=== PATIENT | male | born 1975 | race Caucasian/White ===

== ENCOUNTER 2023-03-29 15:55 | Emergency (ER) | payer SELFPAY ==
[~2023-03-29] VITALS: Ht 175.3 cm; Wt 90.9 kg
[2023-03-29 16:01] VITALS: TEMP 98.3
[2023-03-29 17:32] LABS: ALANINE AMINOTRANSFERASE 24 U/L (0-55); ALBUMIN 3.5 gm/dL (3.5-5.0); ALKALINE PHOSPHATASE 43 U/L (40-150); ANION GAP 13 mmol/L (7-16); AST,SGOT 30 U/L (5-34); BASO # 0.1 K/mm3 (0.0-0.2); BASO % 0.6 % (0.0-2.0); BILIRUBIN,TOTAL 0.2 mg/dL (0.2-1.2); BLOOD UREA NITROGEN 14 mg/dL (9-21); CARBON DIOXIDE 19 mmol/L (22-29); CHLORIDE 110 mmol/L (98-107); CREATININE, serum 0.79 mg/dL (0.72-1.25); EOS # 0.2 K/mm3 (0.0-0.7); EOS % 1.8 % (0.0-4.0); GLUCOSE 68 mg/dL (70-99); GRAN # 4.1 K/mm3 (1.4-6.5); GRAN % 47.7 % (42.2-75.2); HEMATOCRIT 40.6 % (42.0-52.0); HEMOGLOBIN 13.3 g/dl (13.5-18.0); LYMPH # 3.1 K/mm3 (1.2-3.4); LYMPH % 35.2 % (20.0-51.0); MEAN CELL VOLUME 88 fl (80.0-100.0); MEAN CORPUSCULAR HEMOGLOBIN 29 pg (27-31); MEAN CORPUSCULAR HGB CONC 33 g/dl (33.0-37.0); MEAN PLATELET VOLUME 12.2 fl (7.4-10.4); MONO # 1.2 K/mm3 (0.1-0.6); PLATELET COUNT 164 K/mm3 (130-400); POTASSIUM 4.2 mmol/L (3.5-4.5); RED BLOOD COUNT 4.63 M/mm3 (4.20-5.60); REDCELL DISTRIBUTION WIDTH-CV 14.1 % (11.5-14.5); SODIUM 142 mmol/L (136-145); TOTAL PROTEIN 6.6 gm/dL (6.2-8.1)
[2023-03-29 17:33] LABS: ALCOHOL(ethanol),MEDICAL < 10 mg/dL (0-10)
[2023-03-29 18:17] VITALS: BP 150/97; PULSE 92
== END 2023-03-29 18:24 | disposition home or self-care (01) ==
LOC: COL.ER 15:55
PROVIDERS: Physician Assistant
DX: R07.81 Pleurodynia (principal); F41.9 Anxiety disorder, unspecified